=== PATIENT | male | born 1950 | race Hispanic/Latino ===

== ENCOUNTER → 2018-05-01 | Outpatient (CLI) | payer OTHER | END | disposition home or self-care (01) | LOC: RAH 08:42 | PROVIDERS: ATTEND Internal Medicine Gastroenterology | DX: K57.10 Diverticulosis of small intestine without perforation or abscess without bleeding (principal) | CPT/HCPCS: 74240 ==

== ENCOUNTER 2018-05-27 08:30 | Inpatient (IN) | payer OTHER ==
[~2018-05-27] VITALS: Ht 167.6 cm; Wt 80.2 kg
[2018-05-27] MEDS ORDERED: KETOROLAC TROMETHAMINE 30MG/ML ONE (09:30)
[2018-05-27] MEDS ORDERED: MORPHINE SULFATE 4 MG/1ML SYG ONE (10:30)
[2018-05-27] MEDS ORDERED: SODIUM CHLORIDE 0.9% 1000ML 1,000 ML IV SCH (12:43)
[2018-05-27] MEDS ORDERED: MAG HYDROX/AL HYDROX/SIMETH ES 30 ML SUSP UDCUP PO PRN (12:45)
[2018-05-27] MEDS ORDERED: GUAIFENESIN-DM 200/20 MG 10 ML PO PRN (12:45)
[2018-05-27] MEDS ORDERED: ONDANSETRON HCL 4 MG/2 ML VIAL IV PRN (12:45)
[2018-05-27] MEDS ORDERED: LACTULOSE 20 GM/30 ML UDCUP PO PRN (12:45)
[2018-05-27 13:25] VITALS: BP 136/74
[2018-05-27] MEDS ORDERED: ONDANSETRON HCL 4 MG/2 ML VIAL IVP PRN (13:45)
[2018-05-27] MEDS ORDERED: LACTATED RINGERS 1000ML 1,000 ML IV SCH (13:45)
[2018-05-27] MEDS ORDERED: MORPHINE-NS 50 MG/50 ML 50 ML IV PRN (13:45)
[2018-05-27] MEDS ORDERED: NALOXONE HCL 0.4 MG/1 ML ML IVP PRN (13:45)
[2018-05-27] MEDS ORDERED: DEXTROSE 50%-WATER 50 ML DISP.SYRIN IV PRN (13:45)
[2018-05-27] MEDS ORDERED: GLUCAGON 1MG KIT 1 MG ML IM PRN (13:45)
[2018-05-27] MEDS: MORPHINE SULFATE 2 MG/ML 1ML SYG IV PRN ×2 (13:50→18:25)
[2018-05-27] MEDS ORDERED: ESOM40CA54 PO (15:50)
[2018-05-27] MEDS ORDERED: TIZA2CAP9 PO (15:50)
[2018-05-27] MEDS ORDERED: FURO20TA4 PO (15:50)
[2018-05-27] MEDS ORDERED: GLIP1TAB6 PO (15:50)
[2018-05-27] MEDS ORDERED: SUCR1TAB2 PO (15:50)
[2018-05-27] MEDS ORDERED: CARV3.12 PO (15:50)
[2018-05-27] MEDS ORDERED: PRAV40TA3 PO (15:50)
[2018-05-27] MEDS ORDERED: LISI10TA7 PO (15:50)
[2018-05-27 16:00] VITALS: BP 152/70
[2018-05-27] MEDS: INSULIN R PO SS1 SQ SCH ×2 (16:30→19:55)
[2018-05-27] MEDS ORDERED: INSULIN HUMULIN R 100 UNIT/ML 3ML SQ SCH (16:30)
[2018-05-27 20:00] VITALS: BP 151/74
[2018-05-27] MEDS: SUCRALFATE 1 GM TABLET PO SCH (20:17)
[2018-05-27] MEDS: SIMVASTATIN 20 MG TABLET PO SCH (20:17)
[2018-05-27] MEDS: INSULIN GLARGINE 100 UNITS/ML 10 ML VIAL SQ SCH (20:22)
[2018-05-27] MEDS: TIZANIDINE HCL 2 MG TABLET PO SCH (20:22)
[2018-05-27] MEDS ORDERED: VANCOMYCIN PROTOCOL PER PHARMACY IV SCH (21:00)
[2018-05-27] MEDS ORDERED: VANCOMYCIN 1.5 GM in SODIUM CHLORIDE 0.9% 250 ML IV ONE (21:00)
[2018-05-27 21:13] LABS: HEMATOCRIT 32.6 % (42-54); MEAN CORPUSCULAR HEMOGLOBIN 30.9 pg (27.0-33.0); MEAN CORPUSCULAR HGB CONC 33.7 g/dL (32.0-36.0); MEAN CORPUSCULAR VOLUME 91.7 fL (79-99); PLATELET COUNT (AUTO) 261 K/uL (130-400); RED BLOOD CELL COUNT(AUTO) 3.56 MIL/uL (4.50-6.20); RED CELL DISTRIBUTION WIDTH 13.2 % (11.0-15.5); WHITE BLOOD COUNT (AUTO) 12.6 K/uL (4.8-10.8)
[2018-05-27 21:21] LABS: CREATININE 1.5 mg/dL (0.5-1.5); POTASSIUM 3.9 mmol/L (3.5-5.1)
[2018-05-27 21:26] LABS: ALBUMIN 3.1 g/dL (3.5-5.0); BILIRUBIN,TOTAL 0.4 mg/dL (0.2-1.0); TOTAL PROTEIN, SERUM 6.7 g/dL (6.0-8.3)
[2018-05-27] MEDS: DOCUSATE SODIUM 100 MG CAP PO SCH (21:34)
[2018-05-27] MEDS: HYDROCODONE/ACETAMINOPHEN 5/325 MG TAB PO PRN (21:34)
[2018-05-27] MEDS: ZOSYN 3.375GM+NS 50ML 50 ML IV SCH (21:34)
[2018-05-27] MEDS: IPRATROPIUM/ALBUTEROL SULFATE 3 ML SOLUTION IH SCH (21:49)
[2018-05-27 23:20] VITALS: BP 165/75
[2018-05-28] VITALS (7 sets, daily range): BP systolic 123–149; BP diastolic 63–72
[2018-05-28] MEDS: IPRATROPIUM/ALBUTEROL SULFATE 3 ML SOLUTION IH SCH ×6 (01:45→21:20)
[2018-05-28] MEDS: ZOSYN 3.375GM+NS 50ML 50 ML IV SCH ×3 (04:39→20:43)
[2018-05-28] MEDS: HYDROCODONE/ACETAMINOPHEN 5/325 MG TAB PO PRN ×2 (04:45→12:54)
[2018-05-28 04:46] LABS: HEMATOCRIT 33.8 % (42-54); MEAN CORPUSCULAR HEMOGLOBIN 29.6 pg (27.0-33.0); MEAN CORPUSCULAR HGB CONC 32.5 g/dL (32.0-36.0); MEAN CORPUSCULAR VOLUME 91.2 fL (79-99); PLATELET COUNT (AUTO) 247 K/uL (130-400); RED CELL DISTRIBUTION WIDTH 13.1 % (11.0-15.5); WHITE BLOOD COUNT (AUTO) 11.5 K/uL (4.8-10.8)
[2018-05-28 04:58] LABS: ALBUMIN 2.9 g/dL (3.5-5.0); BILIRUBIN,TOTAL 0.5 mg/dL (0.2-1.0); CREATININE 1.5 mg/dL (0.5-1.5); TOTAL PROTEIN, SERUM 6.6 g/dL (6.0-8.3)
[2018-05-28 05:11] LABS: HEMOGLOBIN A1C 6.6 % (4.0-6.0)
[2018-05-28] MEDS: INSULIN R PO SS1 SQ SCH ×4 (05:56→20:43)
[2018-05-28] MEDS: PANTOPRAZOLE SODIUM 40 MG TABLET.DR PO SCH (06:35)
[2018-05-28] MEDS: SUCRALFATE 1 GM TABLET PO SCH ×2 (08:30→20:43)
[2018-05-28] MEDS: FUROSEMIDE 20 MG TABLET PO SCH (08:31)
[2018-05-28] MEDS: DOCUSATE SODIUM 100 MG CAP PO SCH ×2 (08:31→20:43)
[2018-05-28] MEDS: LISINOPRIL 10 MG TABLET PO SCH (08:32)
[2018-05-28] MEDS: CARVEDILOL 3.125 MG TABLET PO SCH (08:32)
[2018-05-28] MEDS: GLIPIZIDE METFORMIN PO SCH (08:34)
[2018-05-28] MEDS ORDERED: NON-FORMULARY MEDICATION 1 EACH (Esomeprazole Magnesium 40 MG) PO SCH (09:00)
[2018-05-28] MEDS: VANCOMYCIN 500MG+NS 100ML 100 ML IV SCH ×2 (12:57→20:43)
[2018-05-28] MEDS: SIMVASTATIN 20 MG TABLET PO SCH (20:43)
[2018-05-28] MEDS: TIZANIDINE HCL 2 MG TABLET PO SCH (20:43)
[2018-05-28] MEDS: INSULIN GLARGINE 100 UNITS/ML 10 ML VIAL SQ SCH (20:51)
[2018-05-28] MEDS ORDERED: SODIUM CHLORIDE 3% FOR INHALATION 4 ML/AMP VIAL.NEB IH ONE (23:33)
[2018-05-29] MEDS: IPRATROPIUM/ALBUTEROL SULFATE 3 ML SOLUTION IH SCH ×4 (01:49→13:58)
[2018-05-29] MEDS ORDERED: SODIUM CHLORIDE 3% FOR INHALATION 4 ML/AMP VIAL.NEB IH ONE (01:54)
[2018-05-29 03:50] VITALS: BP 119/56
[2018-05-29] MEDS: ZOSYN 3.375GM+NS 50ML 50 ML IV SCH ×2 (04:27→13:00)
[2018-05-29] MEDS: PANTOPRAZOLE SODIUM 40 MG TABLET.DR PO SCH (06:42)
[2018-05-29] MEDS: INSULIN R PO SS1 SQ SCH ×2 (06:42→11:28)
[2018-05-29 07:30] VITALS: BP 141/74
[2018-05-29] MEDS: SUCRALFATE 1 GM TABLET PO SCH (08:39)
[2018-05-29] MEDS: DOCUSATE SODIUM 100 MG CAP PO SCH (08:39)
[2018-05-29] MEDS: HYDROCODONE/ACETAMINOPHEN 5/325 MG TAB PO PRN (08:40)
[2018-05-29] MEDS: LISINOPRIL 10 MG TABLET PO SCH (08:40)
[2018-05-29] MEDS: CARVEDILOL 3.125 MG TABLET PO SCH (08:41)
[2018-05-29] MEDS: FUROSEMIDE 20 MG TABLET PO SCH (08:41)
[2018-05-29] MEDS: VANCOMYCIN 500MG+NS 100ML 100 ML IV SCH (08:42)
[2018-05-29] MEDS: GLIPIZIDE METFORMIN PO SCH (09:00)
[2018-05-29] MEDS ORDERED: COMPOUND IV REFRIGERATED 1 EACH IVSOLN MISC PRN (09:45)
[2018-05-29] MEDS ORDERED: VANCOMYCIN 750MG + NS 250 ML IV SCH ×2 (10:00)
[2018-05-29 11:00] VITALS: BP 139/67
[2018-05-29] MEDS ORDERED: ACET1TAB12 PO (12:56)
== END 2018-05-29 14:45 | disposition home or self-care (01) | DRG 184 ==
LOC: EDH 08:30 → EDHIP 11:00 → 3CH 12:58
PROVIDERS: ADMIT Surgery; ATTEND Surgery
DX: S22.41XA Multiple fractures of ribs, right side, initial encounter for closed fracture (principal); J90 Pleural effusion, not elsewhere classified; J98.11 Atelectasis; I10 Essential (primary) hypertension; E78.5 Hyperlipidemia, unspecified; E11.9 Type 2 diabetes mellitus without complications; E66.9 Obesity, unspecified; W19.XXXA Unspecified fall, initial encounter; Z68.28 Body mass index [BMI] 28.0-28.9, adult; Z79.4 Long term (current) use of insulin; Y93.89 Activity, other specified; Y92.89 Other specified places as the place of occurrence of the external cause; Y99.8 Other external cause status
CPT/HCPCS: 36415; 70450; 71045; 71250; 72125; 72170; 74176; 80053; 80061; 80202; 82948; 83036; 83605; 85027; 87040; 94640; 94664; J1885; J2270; J2543; J3370; J7030; J7120

== ENCOUNTER → 2019-07-24 | Outpatient (CLI) | payer OTHER ==
[~2019-07-24] MED LIST: ACET1TAB12 PO; CARV3.12 PO; ESOM40CA54 PO; FURO20TA4 PO; GLIP1TAB6 PO; LISI10TA7 PO; PRAV40TA3 PO; SUCR1TAB2 PO; TIZA2CAP9 PO
== END | disposition home or self-care (01) ==
LOC: SHCH 07:37
PROVIDERS: ATTEND Internal Medicine Cardiovascular Disease
DX: I73.9 Peripheral vascular disease, unspecified (principal); I87.2 Venous insufficiency (chronic) (peripheral)
CPT/HCPCS: 93970

== ENCOUNTER → 2019-07-28 | Outpatient (CLI) | payer OTHER | END | disposition home or self-care (01) | LOC: SHCH 07:33 | PROVIDERS: ATTEND Internal Medicine Cardiovascular Disease | DX: I51.7 Cardiomegaly (principal); I35.8 Other nonrheumatic aortic valve disorders; I35.0 Nonrheumatic aortic (valve) stenosis | CPT/HCPCS: 93306 ==

== ENCOUNTER → 2019-08-04 | Outpatient (CLI) | payer OTHER ==
--- NOTE | 2019-07-25 11:23 | NUR ---
PT RESCHEDULED HIMSELF FOR A DIFFERENT DOS
[~2019-08-04] VITALS: Ht 162.6 cm; Wt 82.6 kg
[~2019-08-04] MED LIST changes: +REGADENOSON 0.4 MG/5 ML PF SYG IVP SCH
== END | disposition home or self-care (01) ==
LOC: SHCH 07:44
PROVIDERS: ATTEND Internal Medicine Cardiovascular Disease
DX: I35.0 Nonrheumatic aortic (valve) stenosis (principal); R06.09 Other forms of dyspnea; R07.9 Chest pain, unspecified; R06.00 Dyspnea, unspecified; K29.70 Gastritis, unspecified, without bleeding
CPT/HCPCS: 78452; 93017; 96374; A9500 ×2; J2785

== ENCOUNTER → 2022-06-02 | Outpatient (CLI) | payer OTHER ==
[~2022-06-02] MED LIST changes: +LISI10TA24 PO; -LISI10TA7 PO; -REGADENOSON 0.4 MG/5 ML PF SYG IVP SCH
== END | disposition home or self-care (01) ==
LOC: SHCH 12:18
PROVIDERS: ATTEND Internal Medicine Cardiovascular Disease
DX: I35.8 Other nonrheumatic aortic valve disorders (principal); I44.7 Left bundle-branch block, unspecified; I11.9 Hypertensive heart disease without heart failure; E11.9 Type 2 diabetes mellitus without complications; E78.5 Hyperlipidemia, unspecified
CPT/HCPCS: 93306